=== PATIENT | female | born 1945 | race Two or more races ===

== ENCOUNTER 2017-08-28 11:18 | Day surgery (SDC) | payer MEDICARE, BC ==
[~2017-08-28] VITALS: Ht 165.1 cm; Wt 67.1 kg
[2017-08-28] VITALS (9 sets, daily range): BP systolic 102–120; BP diastolic 53–65
[2017-08-28] MEDS ORDERED: ROPINIROLE HCL1 MG PO (12:01)
[2017-08-28] MEDS ORDERED: ALPRAZOLAM1 MG ORAL (12:01)
--- NOTE | 2017-08-28 12:17 | Discharge Instructions ---
Discharge Instructions For Surgical Patients Dressing Care: may change May shower: Yes Contact your physician for: bleeding, pain, tenderness, redness, swelling For Congestive Heart Failure Reminder Report to your physician any weight gain of 5 pounds or more in one week. Jim Pérez MD August 28, 2017 12:17
--- NOTE | 2017-08-28 12:19 | Pre-Procedure Note/Attestation ---
Pre-Procedure Note/Attestation Complete Prior to Procedure Planned Procedure: not applicable Procedure Narrative: excision lesion of mid back Indications for Procedure Pre-Operative Diagnosis: mass of mid back Attestation I attest that I discussed the nature of the procedure; its benefits; risks and complications; and alternatives (and the risks and benefits of such alternatives ), prior to the procedure, with the patient (or the patient's legal in store representative). I attest that, if there was a reasonable possibility of needing a blood transfusion, the patient (or the patient's legal in store representative) was given the [facility] standardized written summary, pursuant to the [place] Blood Safety Act ([place] Health and Safety Code # 1645, as amended). I attest that I re-evaluated the patient just prior to the surgery and that there has been no change in the patient's H&P, except as documented below: Jim Pérez MD August 28, 2017 12:19
--- NOTE | 2017-08-28 12:25 | Brief Operative Note ---
Immediate Post Operative Note Operative Note Pre-op Diagnosis: mass of mid back Procedure: excision lesion of back Post-op Diagnosis: same Post-op Diagnosis: same as pre-op Findings: consistent w/pre-op dx studies Surgeon: Jim Pérez Anesthesia: general Specimen: yes Complications: none Condition: stable Fluids: none Estimated Blood Loss: none Drains: none Packing: none Implant(s) used?: No Jim Pérez MD August 28, 2017 12:25
[2017-08-28] MEDS ORDERED: fentaNYL 100 mcg/2 mL IV ONE (12:53)
[2017-08-28] MEDS ORDERED: Propofol 200mg/20ml IV ONE (12:53)
[2017-08-28] MEDS ORDERED: Midazolam 2mg/2ml Inj ONE (12:54)
[2017-08-28] MEDS ORDERED: NS Irrig 1000ml ONE (13:00)
[2017-08-28] MEDS ORDERED: Neostigmine 1mg/ml 10ml Inj ONE (13:00)
[2017-08-28] MEDS ORDERED: Sterile Water Irrig 1000ml IRRIG ONE (13:00)
[2017-08-28] MEDS ORDERED: LR 1000ml ONE (13:00)
[2017-08-28] MEDS ORDERED: Lidocaine 1% 10mg/ml/EPI 0.01mg/ml 50ml INJ ONE (13:00)
[2017-08-28] MEDS ORDERED: Zemuron 50mg/5ml Inj IV ONE (13:00)
[2017-08-28] MEDS ORDERED: Succinylcholine 20mg/ml 10ml vial ONE (13:00)
[2017-08-28] MEDS ORDERED: Glycopyrrolate 0.2mg/ml 1ml Vial ONE (13:40)
[2017-08-28] MEDS ORDERED: Ketorolac 30mg Inj ONE (13:42)
--- NOTE | 2017-08-28 13:50 | Anethesia Preoperative Eval ---
Anesthesia Pre-op PMH/ROS General Date of Evaluation: August 28, 2017 Time of Evaluation: 12:45 Anesthesiologist: Dayanara ASA Score: ASA 2 Mallampati Score Class I : Soft palate, uvula, fauces, pillars visible Class II: Soft palate, uvula, fauces visible Class III: Soft palate, base of uvula visible Class IV: Only hard plate visible Mallampati Classification: Class II Surgeon: Elisa Diagnosis: Midback mass Surgical Procedure: Excision of back mass Anesthesia History: none Social History: smoking - h/o Family History: no anesthesia problems Allergies: Coded Allergies: ASPIRIN (Verified Allergy, Unknown, 08/27/17) Medications: see eMAR Past Medical History Cardiovascular: Denies: HTN, CAD, MD, valve dz, arrhythmia, other Pulmonary: Denies: asthma, COPD, DAYSI, other Gastrointestinal/Genitourinary: Reports: GERD - mild; Denies: CRI, ESRD, other Neurologic/Psychiatric: Reports: depression/anxiety; Denies: dementia, CVA, TIA, other Endocrine: Denies: DM, hypothyroidism, steroids, other HEENT: Denies: cataract (L), cataract (R), glaucoma, [place] (L), [place]ASS (R), other Hematology/Immune: Denies: anemia, DVT, bleeding disorder, other Musculoskeletal/Integumentary: Denies: OA, RA, DJD, DDD, edema, other PMH Narrative: as above PSxH Narrative: L wrist ORIF Anesthesia Pre-op Phys. Exam Physician Exam Last Vital Signs Date Time Temp Pulse Resp B/P (MAP) Pulse Ox O2 Delivery O2 Flow Rate FiO2 08/28/17 11:54 97.9 61 18 111/63 100 Room Air 97.9 Constitutional: NAD Cardiovascular: RRR, no M/R/G Respiratory: CTA Gastrointestinal: S/NT/ND Airway Exam Mallampati Score: Class II MO: full - flexible Neck: flexible ROM: limited Teeth: intact Dentures: no upper, no lower Anesthesia Pre-op A/P Labs see chart Studies Pre-op Studies: EKG - Nsr Risk Assessment & Plan Assessment: ASA 2 Plan: Prone position by surgeon, GA with ETT Status Change Before Surgery: No Pre-Antibiotics Drug: Ancef 1 gr. Given Within 1 Hr of Incision: Yes Time Given: 13:22 Vern Nichole MD August 28, 2017 13:50
[2017-08-28] MEDS ORDERED: LR 1000ml 1,000 ML IVLG SCH (13:51)
[2017-08-28] MEDS ORDERED: fentaNYL 100 mcg/2 mL IV PRN (14:00)
[2017-08-28] MEDS ORDERED: DiphenhydrAMINE 50mg/ml Inj IVP PRN (14:00)
--- NOTE | 2017-08-28 14:36 | Immediate Post-Op Evaluation ---
Immediate Post-Op Evalulation Immediate Post-Op Evalulation Procedure: Excision of middle back mass Date of Evaluation: August 28, 2017 Time of Evaluation: 14:35 IV Fluids: 1200 Blood Products: none Estimated Blood Loss: min Urinary Output: none Blood Pressure Systolic: 110 Blood Pressure Diastolic: 53 Pulse Rate: 76 Respiratory Rate: 20 O2 Sat by Pulse Oximetry: 99 Temperature (Fahrenheit): 97.8 Pain Score (1-10): 1 Nausea: No Vomiting: No Complications NONE Patient Status: reacts, patent, extubated, none Hydration Status: adequate Vern Nichole MD August 28, 2017 14:36
--- NOTE | 2017-08-28 15:03 | 48 Hour Post Anesthesia Eval ---
Post Anesthesia Evaluation Procedure: Excision of middle back mass Date of Evaluation: August 28, 2017 Time of Evaluation: 15:01 Blood Pressure Systolic: 116 0: 68 Pulse Rate: 72 Respiratory Rate: 20 Temperature (Fahrenheit): 97.8 O2 Sat by Pulse Oximetry: 99 Airway: patent Nausea: No Vomiting: No Pain Intensity: 2 Hydration Status: adequate Cardiopulmonary Status: stable Mental Status/LOC: patient returned to baseline Follow-up Care/Observations: n/a Post-Anesthesia Complications: none Follow-up care needed: ready to discharge Vern Nichole MD August 28, 2017 15:03
--- NOTE | 2017-08-29 22:00 | Operative Note - Dictated ---
DATE OF OPERATION: 08/28/2017 PREOPERATIVE DIAGNOSIS: Mass of mid upper back. POSTOPERATIVE DIAGNOSIS: Mass of mid upper back. PROCEDURE: Excision of mass of mid upper back. SURGEON: Jim Pérez M.D. ANESTHESIA: General. DESCRIPTION OF PROCEDURE: The patient was placed supine on the operating table, general anesthesia with endotracheal intubation was induced. The patient was turned into the prone position and the back was prepped and draped in the usual fashion. The operative area was injected with Xylocaine with epinephrine. Time was left for vasoconstriction. A vertical 4 cm incision was made over the central portion of the mass. The incision was carried through the skin using a scalpel. The subcutaneous tissue was with scissors and the anterior wall of the sebaceous cyst capsule was encountered. Capsule was densely adherent to the skin and it was difficult to dissect from the skin, therefore a #10 scalpel was used to establish a plane of dissection between the skin and the anterior capsule. The skin was retracted and the posterior attachments to the back musculature was also detached with the scalpel and with scissors. The lesion was excised in continuity and submitted in formalin for . Bleeding points were controlled with electrocautery. The wound was closed with interrupted sutures of 4-0 Monocryl on the dermis, the skin was closed with a running subcuticular suture of 4-0 Prolene and simple interrupted sutures of 4-0 Prolene to complete the closure. Steri-strips were applied. Sterile gauze was applied and a Tegaderm was applied. The patient tolerated the surgery well. She was awakened, extubated, and returned to recovery room in excellent condition. Estimated blood loss was negligible. Sponge and needle counts were correct at the conclusion of the case. Jim Pérez M.D. DR: YASMANY JOB#: [id number] CC:
== END 2017-08-28 15:50 | disposition home or self-care (01) ==
LOC: SUR 11:18
DX: L72.0 Epidermal cyst (principal); Z88.6 Allergy status to analgesic agent; K21.9 Gastro-esophageal reflux disease without esophagitis; F32.9 Major depressive disorder, single episode, unspecified; F41.9 Anxiety disorder, unspecified
CPT/HCPCS: 11404; J0330; J0690; J1885; J2250; J2704; J2710; J3010; J7120; 94003; 94150